=== PATIENT | male | born 1995 | race Caucasian/White ===

== ENCOUNTER 2024-03-31 12:18 | Emergency (ER) | payer OTHER ==
[~2024-03-31] VITALS: Ht 175.3 cm; Wt 93.0 kg
[2024-03-31 12:32] VITALS: BP 120/73; PULSE 66; RESP 22; TEMP 97.4; O2SAT 98
[2024-03-31] MEDS ORDERED: BACITRACIN OINT 500 UNITS/GM PKT TP ONE (12:47)
[2024-03-31] MEDS ORDERED: BACI-418 TP (12:54)
[2024-03-31 13:05] VITALS: BP 120/73; PULSE 66; RESP 22; TEMP 97.4; O2SAT 98
[2024-03-31] MEDS: BACITRACIN OINT 500 UNITS/GM PKT TP ONE (13:16)
== END 2024-03-31 13:20 | disposition home or self-care (01) ==
LOC: MED 12:18
DX: S61.202A Unspecified open wound of right middle finger without damage to nail, initial encounter (principal); F17.200 Nicotine dependence, unspecified, uncomplicated; Z98.890 Other specified postprocedural states; Z79.899 Other long term (current) drug therapy; W26.8XXA Contact with other sharp object(s), not elsewhere classified, initial encounter; Y93.89 Activity, other specified; Y92.009 Unspecified place in unspecified non-institutional (private) residence as the place of occurrence of the external cause; Y99.8 Other external cause status
CPT/HCPCS: 90471; 90715; 99283